=== PATIENT | female | born 1940 | race Caucasian/White ===

== ENCOUNTER 2023-04-24 23:52 | Inpatient (IN) | payer MEDICARE ==
[~2023-04-24] VITALS: Ht 167.6 cm; Wt 65.8 kg
[2023-04-25] MEDS ORDERED: FAMO20TA8 PO (00:10)
[2023-04-25] MEDS ORDERED: ATOR10TA PO (00:10)
[2023-04-25] MEDS ORDERED: LEVE500T9 PO (00:10)
[2023-04-25] MEDS ORDERED: SENN-261 PO (00:10)
[2023-04-25] MEDS ORDERED: AMLO-212 PO (00:10)
[2023-04-25] MEDS ORDERED: DONE10TA44 PO (00:10)
[2023-04-25] MEDS ORDERED: PARO-142 PO (00:10)
[2023-04-25 01:34] VITALS: BP 151/60; TEMP 98.1; O2SAT 96
[2023-04-25] MEDS ORDERED: BLOOD SUGAR DIAGNOSTIC 1 EACH STRIP VI ONE (06:00)
[2023-04-25] MEDS ORDERED: MAGNESIUM HYDROXIDE 30 ML LIQUID UDC PO PRN (06:00)
[2023-04-25] MEDS ORDERED: CLONAZEPAM 0.5 MG TABLET PO PRN (06:00)
[2023-04-25] MEDS ORDERED: MAG HYDROX/AL HYDROX/SIMETH 30 ML LIQUID UDC PO PRN (06:00)
[2023-04-25 08:04] VITALS: BP 144/66; TEMP 98.2; O2SAT 99
[2023-04-25] MEDS: PAROXETINE HCL 20 MG TABLET PO SCH (10:53)
[2023-04-25] MEDS: DIVALPROEX SPRINKLE 125 MG CAP.SPRINK PO SCH ×2 (10:53→20:45)
[2023-04-25] MEDS ORDERED: AMLO10TA59 PO (11:05)
[2023-04-25 15:13] VITALS: BP 147/76; TEMP 98; O2SAT 96
[2023-04-25] MEDS: levETIRAcetam 500 MG TABLET PO SCH (17:17)
[2023-04-25] MEDS: SENNOSIDES 1 TABLET PO SCH (17:17)
[2023-04-25 20:11] VITALS: BP 152/80; TEMP 98.1; O2SAT 98
[2023-04-25] MEDS: ATORVASTATIN 10 MG TABLET PO SCH (20:45)
[2023-04-25] MEDS: OLANZAPINE ZYDIS 5 MG TAB.RAPDIS PO SCH (20:45)
[2023-04-25] MEDS: MUPIROCIN 2% OINT 22 GM TUBE TP SCH (20:59)
[2023-04-25] MEDS: TEMAZEPAM 7.5 MG CAPSULE PO PRN (22:11)
[2023-04-26 08:03] VITALS: BP 118/53; TEMP 98; O2SAT 98
[2023-04-26 08:53] LABS: ALANINE AMINOTRANSFERASE 29 U/L (14-59); ALBUMIN 3.4 g/dL (3.4-5.0); ALKALINE PHOSPHATASE 69 U/L (50-136); ASPARTATE AMINOTRANSFERASE 32 U/L (15-37); BILIRUBIN,TOTAL 0.3 mg/dL (0.2-1.0); CALCIUM 8.9 mg/dL (8.5-10.1); CARBON DIOXIDE 25 mmol/L (21-32); CHLORIDE 109 mmol/L (98-107); CREATININE 0.9 mg/dL (0.6-1.3); GLUCOSE 136 mg/dL (74-106); POTASSIUM 4.7 mmol/L (3.5-5.1); SODIUM SERUM 139 mmol/L (136-145); TOTAL PROTEIN, SERUM 7.3 g/dL (6.4-8.2); UREA NITROGEN, BLOOD 24 mg/dL (7-18)
[2023-04-26] MEDS ORDERED: AMLODIPINE 5 MG TABLET PO SCH (09:00)
[2023-04-26] MEDS: SENNOSIDES 1 TABLET PO SCH ×2 (09:16→16:31)
[2023-04-26] MEDS: FAMOTIDINE 20 MG TABLET PO SCH (09:16)
[2023-04-26] MEDS: levETIRAcetam 500 MG TABLET PO SCH ×2 (09:16→16:32)
[2023-04-26] MEDS: DIVALPROEX SPRINKLE 125 MG CAP.SPRINK PO SCH ×2 (09:16→22:09)
[2023-04-26] MEDS: AMLODIPINE 10 MG TABLET PO SCH (09:17)
[2023-04-26] MEDS: MUPIROCIN 2% OINT 22 GM TUBE TP SCH ×2 (09:17→16:32)
[2023-04-26] MEDS: PAROXETINE HCL 20 MG TABLET PO SCH (09:17)
[2023-04-26 15:26] VITALS: BP 119/53; TEMP 98; O2SAT 98
[2023-04-26] MEDS: ACETAMINOPHEN 325 MG TABLET PO PRN (16:48)
[2023-04-26 20:00] VITALS: BP 116/64; TEMP 98; O2SAT 98
[2023-04-26] MEDS: REMEDY ESSENTIAL ZINC PASTE 113 GM TOP SCH (21:00)
[2023-04-26] MEDS: ATORVASTATIN 10 MG TABLET PO SCH (22:08)
[2023-04-26] MEDS: OLANZAPINE ZYDIS 5 MG TAB.RAPDIS PO SCH (22:08)
[2023-04-27 07:52] VITALS: BP 120/57; TEMP 98.1; O2SAT 97
[2023-04-27] MEDS: levETIRAcetam 500 MG TABLET PO SCH ×2 (08:31→17:16)
[2023-04-27] MEDS: FAMOTIDINE 20 MG TABLET PO SCH (08:31)
[2023-04-27] MEDS: REMEDY ESSENTIAL ZINC PASTE 113 GM TOP SCH ×2 (08:32→20:32)
[2023-04-27] MEDS: DIVALPROEX SPRINKLE 125 MG CAP.SPRINK PO SCH ×2 (08:32→20:31)
[2023-04-27] MEDS: AMLODIPINE 10 MG TABLET PO SCH (08:32)
[2023-04-27] MEDS: SENNOSIDES 1 TABLET PO SCH ×2 (08:32→17:16)
[2023-04-27] MEDS: MUPIROCIN 2% OINT 22 GM TUBE TP SCH ×2 (08:34→17:17)
[2023-04-27] MEDS: PAROXETINE HCL 20 MG TABLET PO SCH (09:02)
[2023-04-27] MEDS: ACETAMINOPHEN 325 MG TABLET PO PRN (11:32)
[2023-04-27 16:16] VITALS: BP 111/63; TEMP 98; O2SAT 98
[2023-04-27 20:00] VITALS: BP 143/88; TEMP 98.1; O2SAT 97
[2023-04-27] MEDS: OLANZAPINE ZYDIS 5 MG TAB.RAPDIS PO SCH (20:31)
[2023-04-27] MEDS: ATORVASTATIN 10 MG TABLET PO SCH (20:31)
[2023-04-27] MEDS: TEMAZEPAM 7.5 MG CAPSULE PO PRN (21:57)
[2023-04-28 08:27] VITALS: BP 145/70; TEMP 98.1; O2SAT 99
[2023-04-28] MEDS: SENNOSIDES 1 TABLET PO SCH ×2 (09:05→17:22)
[2023-04-28] MEDS: PAROXETINE HCL 20 MG TABLET PO SCH (09:05)
[2023-04-28] MEDS: DIVALPROEX SPRINKLE 125 MG CAP.SPRINK PO SCH ×2 (09:05→20:45)
[2023-04-28] MEDS: AMLODIPINE 10 MG TABLET PO SCH (09:06)
[2023-04-28] MEDS: levETIRAcetam 500 MG TABLET PO SCH ×2 (09:06→17:22)
[2023-04-28] MEDS: FAMOTIDINE 20 MG TABLET PO SCH (09:06)
[2023-04-28] MEDS: REMEDY ESSENTIAL ZINC PASTE 113 GM TOP SCH ×2 (09:15→20:46)
[2023-04-28] MEDS: MUPIROCIN 2% OINT 22 GM TUBE TP SCH ×2 (09:15→17:23)
[2023-04-28 16:21] VITALS: BP 122/74; TEMP 98; O2SAT 100
[2023-04-28 20:00] VITALS: BP 129/65; TEMP 98; O2SAT 98
[2023-04-28] MEDS: OLANZAPINE ZYDIS 5 MG TAB.RAPDIS PO SCH (20:44)
[2023-04-28] MEDS: ATORVASTATIN 10 MG TABLET PO SCH (20:45)
[2023-04-28] MEDS: TEMAZEPAM 7.5 MG CAPSULE PO PRN (22:21)
[2023-04-28] MEDS: ACETAMINOPHEN 325 MG TABLET PO PRN (22:21)
[2023-04-29 07:55] VITALS: BP 162/78; TEMP 98; O2SAT 99
[2023-04-29] MEDS: SENNOSIDES 1 TABLET PO SCH ×2 (09:03→17:44)
[2023-04-29] MEDS: DIVALPROEX SPRINKLE 125 MG CAP.SPRINK PO SCH ×2 (09:03→20:52)
[2023-04-29] MEDS: levETIRAcetam 500 MG TABLET PO SCH ×2 (09:03→17:44)
[2023-04-29] MEDS: FAMOTIDINE 20 MG TABLET PO SCH (09:03)
[2023-04-29] MEDS: AMLODIPINE 10 MG TABLET PO SCH (09:03)
[2023-04-29] MEDS: REMEDY ESSENTIAL ZINC PASTE 113 GM TOP SCH ×2 (09:04→20:53)
[2023-04-29] MEDS: MUPIROCIN 2% OINT 22 GM TUBE TP SCH ×2 (09:04→16:39)
[2023-04-29] MEDS: PAROXETINE HCL 20 MG TABLET PO SCH (09:05)
[2023-04-29 19:48] VITALS: BP 137/66; TEMP 98.1; O2SAT 96
[2023-04-29] MEDS: ATORVASTATIN 10 MG TABLET PO SCH (20:52)
[2023-04-29] MEDS: OLANZAPINE ZYDIS 5 MG TAB.RAPDIS PO SCH (20:52)
[2023-04-29] MEDS: TEMAZEPAM 7.5 MG CAPSULE PO PRN (22:13)
[2023-04-30 08:06] VITALS: BP 130/60; TEMP 98.2; O2SAT 96
[2023-04-30] MEDS: levETIRAcetam 500 MG TABLET PO SCH ×2 (08:31→17:33)
[2023-04-30] MEDS: FAMOTIDINE 20 MG TABLET PO SCH (08:31)
[2023-04-30] MEDS: SENNOSIDES 1 TABLET PO SCH ×2 (08:31→17:33)
[2023-04-30] MEDS: DIVALPROEX SPRINKLE 125 MG CAP.SPRINK PO SCH ×2 (08:31→20:47)
[2023-04-30] MEDS: PAROXETINE HCL 20 MG TABLET PO SCH (08:32)
[2023-04-30] MEDS: AMLODIPINE 10 MG TABLET PO SCH (08:32)
[2023-04-30] MEDS: REMEDY ESSENTIAL ZINC PASTE 113 GM TOP SCH ×2 (08:32→20:51)
[2023-04-30] MEDS: MUPIROCIN 2% OINT 22 GM TUBE TP SCH ×2 (08:33→17:33)
[2023-04-30 15:25] VITALS: BP 112/73; TEMP 98; O2SAT 98
[2023-04-30 20:13] VITALS: BP 137/69; TEMP 98.1; O2SAT 95
[2023-04-30] MEDS: OLANZAPINE ZYDIS 5 MG TAB.RAPDIS PO SCH (20:47)
[2023-04-30] MEDS: ATORVASTATIN 10 MG TABLET PO SCH (20:47)
[2023-05-01 07:30] VITALS: BP 131/74; TEMP 98.1; O2SAT 96
[2023-05-01] MEDS: FAMOTIDINE 20 MG TABLET PO SCH (09:00)
[2023-05-01] MEDS: levETIRAcetam 500 MG TABLET PO SCH ×2 (09:00→16:32)
[2023-05-01] MEDS: AMLODIPINE 10 MG TABLET PO SCH (09:00)
[2023-05-01] MEDS: SENNOSIDES 1 TABLET PO SCH ×2 (09:00→16:32)
[2023-05-01] MEDS: DIVALPROEX SPRINKLE 125 MG CAP.SPRINK PO SCH ×2 (09:00→20:48)
[2023-05-01] MEDS: PAROXETINE HCL 20 MG TABLET PO SCH (09:02)
[2023-05-01] MEDS: MUPIROCIN 2% OINT 22 GM TUBE TP SCH ×2 (09:02→16:32)
[2023-05-01] MEDS: REMEDY ESSENTIAL ZINC PASTE 113 GM TOP SCH ×2 (09:02→21:33)
[2023-05-01 15:46] VITALS: BP 126/73; TEMP 98.1; O2SAT 96
[2023-05-01] MEDS: ATORVASTATIN 10 MG TABLET PO SCH (20:48)
[2023-05-01] MEDS: OLANZAPINE ZYDIS 5 MG TAB.RAPDIS PO SCH (20:48)
[2023-05-01] MEDS: TEMAZEPAM 7.5 MG CAPSULE PO PRN (21:32)
[2023-05-01 22:26] VITALS: BP 116/65; TEMP 98; O2SAT 98
[2023-05-02 08:09] VITALS: BP 133/68; TEMP 98; O2SAT 96
[2023-05-02] MEDS: AMLODIPINE 10 MG TABLET PO SCH (08:53)
[2023-05-02] MEDS: levETIRAcetam 500 MG TABLET PO SCH ×2 (08:53→17:38)
[2023-05-02] MEDS: PAROXETINE HCL 20 MG TABLET PO SCH (08:53)
[2023-05-02] MEDS: SENNOSIDES 1 TABLET PO SCH ×2 (08:53→17:38)
[2023-05-02] MEDS: FAMOTIDINE 20 MG TABLET PO SCH (08:53)
[2023-05-02] MEDS: DIVALPROEX SPRINKLE 125 MG CAP.SPRINK PO SCH ×2 (08:53→20:43)
[2023-05-02] MEDS: REMEDY ESSENTIAL ZINC PASTE 113 GM TOP SCH ×2 (08:54→20:44)
[2023-05-02] MEDS: MUPIROCIN 2% OINT 22 GM TUBE TP SCH ×2 (08:54→17:39)
[2023-05-02 15:33] VITALS: BP 124/72; TEMP 98.2; O2SAT 98
[2023-05-02 19:54] VITALS: BP 108/56; TEMP 98; O2SAT 98
[2023-05-02] MEDS: OLANZAPINE ZYDIS 5 MG TAB.RAPDIS PO SCH (20:43)
[2023-05-02] MEDS: ATORVASTATIN 10 MG TABLET PO SCH (20:43)
[2023-05-02] MEDS: TEMAZEPAM 7.5 MG CAPSULE PO PRN (21:49)
[2023-05-03] MEDS: DIVALPROEX SPRINKLE 125 MG CAP.SPRINK PO SCH (08:49)
[2023-05-03] MEDS: AMLODIPINE 10 MG TABLET PO SCH (08:50)
[2023-05-03] MEDS: SENNOSIDES 1 TABLET PO SCH (08:50)
[2023-05-03] MEDS: FAMOTIDINE 20 MG TABLET PO SCH (08:50)
[2023-05-03] MEDS: PAROXETINE HCL 20 MG TABLET PO SCH (08:51)
[2023-05-03] MEDS: MUPIROCIN 2% OINT 22 GM TUBE TP SCH (08:58)
[2023-05-03] MEDS: REMEDY ESSENTIAL ZINC PASTE 113 GM TOP SCH (08:59)
[2023-05-03] MEDS: levETIRAcetam 500 MG TABLET PO SCH (09:04)
[2023-05-03 11:38] VITALS: BP 137/73; TEMP 97.6; O2SAT 98
== END 2023-05-03 12:15 | DRG 885 ==
LOC: ER 23:59 → GPS 04-25 00:58
PROVIDERS: ADMIT Psychiatry & Neurology Psychiatry; ATTEND Nurse Practitioner Acute Care
DX: F31.9 Bipolar disorder, unspecified (principal); F03.94 Unspecified dementia, unspecified severity, with anxiety; F03.93 Unspecified dementia, unspecified severity, with mood disturbance; E78.5 Hyperlipidemia, unspecified; Z87.820 Personal history of traumatic brain injury; K21.9 Gastro-esophageal reflux disease without esophagitis; G40.909 Epilepsy, unspecified, not intractable, without status epilepticus; Z79.899 Other long term (current) drug therapy
CPT/HCPCS: 36415; 80164; 93005